=== PATIENT | female | born 1990 | race Caucasian/White ===

== ENCOUNTER 2023-01-31 10:57 | Observation (INO) | payer BC ==
[~2023-01-31] VITALS: Ht 167.6 cm; Wt 89.8 kg
== END 2023-01-31 12:20 | disposition home or self-care (01) ==
LOC: SPU 10:57
PROVIDERS: ADMIT Obstetrics & Gynecology; ATTEND Obstetrics & Gynecology
DX: O36.8130 Decreased fetal movements, third trimester, not applicable or unspecified (principal); Z3A.39 39 weeks gestation of pregnancy
CPT/HCPCS: 59025; 81002; G0378; G0379

== ENCOUNTER 2023-02-01 21:48 | Inpatient (IN) | payer BC ==
[~2023-02-01] VITALS: Ht 167.6 cm; Wt 89.8 kg
[2023-02-01] MEDS ORDERED: LR 1,000 ML IV ONE (22:30)
[2023-02-01] MEDS ORDERED: NALBUPHINE HCL 10 MG/ML AMP IVP PRN (22:30)
[2023-02-01] MEDS ORDERED: TERBUTALINE SULFATE 1 MG/ML VIAL SUBCUT PRN (22:30)
[2023-02-01] MEDS ORDERED: AMPICILLIN SODIUM 2 GM in NS 100 ML IV ONE (22:30)
[2023-02-01] MEDS ORDERED: OXYTOCIN/0.9 % SODIUM CHLORIDE 1,000 ML IV SCH (22:30)
[2023-02-01 23:00] LABS: BASOPHILS % (AUTO) 0.2 % (0.0-2.0); EOSINOPHILS # (AUTO) 0.1 K/uL (0.0-0.4); EOSINOPHILS % (AUTO) 0.7 % (0.0-4.0); HEMATOCRIT 37.1 % (36-48); HEMOGLOBIN 12.6 g/dL (12.0-16.0); LYMPHOCYTES # (AUTO) 1.7 K/uL (1.0-5.5); LYMPHOCYTES % (AUTO) 18.4 % (20.5-51.5); MEAN CORPUSCULAR HEMOGLOBIN 32 pg (27-31); MEAN CORPUSCULAR HGB CONC 34 % (32-36); MEAN CORPUSCULAR VOLUME 94 fL (79.0-98.0); MONOCYTES # (AUTO) 0.6 K/uL (0.0-1.0); MONOCYTES % (AUTO) 6.5 % (1.7-9.3); NEUTROPHILS # (AUTO) 6.8 K/uL (1.8-7.7); NEUTROPHILS % (AUTO) 74.2 % (40.0-70.0); PLATELET COUNT (AUTO) 228 K/uL (130-430); RED BLOOD CELL COUNT(AUTO) 3.94 MIL/uL (4.2-6.2); RED CELL DISTRIBUTION WIDTH 13.3 % (9.0-15.0); WHITE BLOOD COUNT (AUTO) 9.1 K/uL (4.8-10.8)
[2023-02-01] MEDS: LR 1,000 ML IV SCH (23:42)
[2023-02-02] MEDS ORDERED: ROPIVACAINE HCL/PF 0.2% 200 ML ONE ×2 (00:18→17:47)
[2023-02-02] MEDS ORDERED: fentaNYL CITRATE/PF 100 MCG/2 ML AMP ONE ×2 (00:18→17:47)
[2023-02-02] MEDS ORDERED: AMPICILLIN SODIUM 2 GM VIAL ONE (01:10)
[2023-02-02] MEDS ORDERED: FENT2mCg/mL-ROPIVA0.2%/NS EPID 200 ML EP SCH (01:45)
[2023-02-02] MEDS ORDERED: LR 500 ML IV ONE (01:45)
[2023-02-02] MEDS ORDERED: DIPHENHYDRAMINE INJ 50 MG/ML VIAL IVP PRN (02:15)
[2023-02-02 03:39] VITALS: BP_SYST 136
[2023-02-02] MEDS ORDERED: AMPICILLIN SODIUM 1 GM VIAL ONE ×2 (05:06→05:09)
[2023-02-02] MEDS: AMPICILLIN SODIUM 1 GM in NS 50 ML IV SCH ×2 (05:12→09:19)
[2023-02-02] MEDS: LR 1,000 ML IV SCH ×2 (11:40→18:24)
[2023-02-03] MEDS: LR 1,000 ML IV SCH (00:48)
[2023-02-03] MEDS ORDERED: fentaNYL CITRATE/PF 100 MCG/2 ML AMP ONE (01:28)
[2023-02-03] MEDS ORDERED: ROPIVACAINE HCL/PF 0.2% 200 ML ONE (01:29)
[2023-02-03] MEDS ORDERED: AMPICILLIN SODIUM 2 GM in NS 100 ML IV ONE (02:30)
[2023-02-03] MEDS ORDERED: AMPICILLIN SODIUM 2 GM VIAL ONE (02:35)
[2023-02-03] MEDS ORDERED: CEFAZOLIN 1 GM IVPB PREMIX 50 ML IV ONE (03:15)
[2023-02-03] MEDS ORDERED: CEFAZOLIN 2 GM IVPB PREMIX 50 ML IV ONE (03:15)
[2023-02-03 03:49] LABS: BILIRUBIN,URINE 1+ (NEGATIVE); BLOOD, URINE 3+ (NEGATIVE); CLARITY/URINE SL CLOUDY (CLEAR); COLOR,URINE YELLOW (YELLOW); GLUCOSE,URINE NEGATIVE (NEGATIVE); KETONES,URINE 3+ (NEGATIVE); LEUKOCYTE ESTERASE ,URINE NEGATIVE (NEGATIVE); NITRITE, URINE NEGATIVE (NEGATIVE); PROTEIN URINE 2+ (NEGATIVE); UROBILINOGEN,URINE 0.2 (0.2-1.0)
[2023-02-03 03:52] LABS: BACTERIA,URINE None Seen /HPF (None Seen); RBC,URINE 20-50 /HPF (0-3); WBC,URINE 0-3 /HPF (0-3)
[2023-02-03] MEDS ORDERED: METHYLERGONOVINE MALEATE 0.2 MG/ML AMP ONE (06:04)
[2023-02-03] MEDS ORDERED: LANOLIN 7 GM OINT. TP PRN (06:15)
[2023-02-03] MEDS ORDERED: KETOROLAC TROMETHAMINE 30 MG VIAL IVP PRN ×2 (06:15→07:30)
[2023-02-03] MEDS ORDERED: LR 1,000 ML IV SCH (06:15)
[2023-02-03] MEDS ORDERED: BISACODYL 10 MG/SUPPOSITORY RC PRN (06:15)
[2023-02-03] MEDS ORDERED: ANUSOL 1 EA SUPP.RECT (PREPARATION H) RC PRN (06:15)
[2023-02-03] MEDS ORDERED: OXYTOCIN/0.9 % SODIUM CHLORIDE 1,000 ML IV ONE (06:15)
[2023-02-03] MEDS ORDERED: AMPICILLIN SODIUM 1 GM in NS 50 ML IV SCH (06:30)
[2023-02-03 06:57] VITALS: BP_SYST 126
[2023-02-03] MEDS ORDERED: ONDANSETRON HCL 4 MG/2 ML VIAL IVP PRN ×2 (07:00→07:30)
[2023-02-03] MEDS ORDERED: KETOROLAC TROMETHAMINE 60 MG/2 ML VIAL IM PRN (07:00)
[2023-02-03] MEDS ORDERED: HYDROmorphone 1 MG/ML INJ. CARTRIDGE ONE (07:20)
[2023-02-03] MEDS ORDERED: HYDROmorphone 1 MG/ML INJ. CARTRIDGE IVP PRN ×2 (07:30)
[2023-02-03] MEDS ORDERED: NALOXONE HCL 0.4 MG/ML AMP (NARCAN) IVP PRN ×2 (07:30)
[2023-02-03] MEDS: SENNOSIDES/DOCUSATE SODIUM 1 TAB TABLET(SENOKOT-S) PO SCH (20:43)
[2023-02-03] MEDS: DOCUSATE SODIUM 100 MG CAPSULE PO SCH (20:43)
[2023-02-03] MEDS: SIMETHICONE 80 MG TAB.CHEW PO PRN (20:44)
[2023-02-03] MEDS ORDERED: TEMAZEPAM 15 MG CAPSULE PO PRN (21:00)
[2023-02-04] MEDS: SIMETHICONE 80 MG TAB.CHEW PO PRN ×4 (00:53→21:10)
[2023-02-04] MEDS: OXYCODONE/ACETAMINOPHEN 5-325 TABLET PO PRN ×4 (00:53→21:11)
[2023-02-04 06:06] LABS: BASOPHILS % (AUTO) 0.4 % (0.0-2.0); EOSINOPHILS % (AUTO) 0.5 % (0.0-4.0); HEMATOCRIT 32.2 % (36-48); HEMOGLOBIN 10.9 g/dL (12.0-16.0); LYMPHOCYTES # (AUTO) 1.6 K/uL (1.0-5.5); LYMPHOCYTES % (AUTO) 16.3 % (20.5-51.5); MEAN CORPUSCULAR HEMOGLOBIN 32 pg (27-31); MEAN CORPUSCULAR HGB CONC 34 % (32-36); MEAN CORPUSCULAR VOLUME 95 fL (79.0-98.0); MONOCYTES # (AUTO) 0.7 K/uL (0.0-1.0); MONOCYTES % (AUTO) 7.4 % (1.7-9.3); NEUTROPHILS # (AUTO) 7.6 K/uL (1.8-7.7); NEUTROPHILS % (AUTO) 75.4 % (40.0-70.0); PLATELET COUNT (AUTO) 193 K/uL (130-430); RED BLOOD CELL COUNT(AUTO) 3.41 MIL/uL (4.2-6.2); RED CELL DISTRIBUTION WIDTH 13.5 % (9.0-15.0)
[2023-02-04] MEDS: IBUPROFEN 800 MG TABLET PO PRN ×4 (06:27→23:58)
[2023-02-04] MEDS: DOCUSATE SODIUM 100 MG CAPSULE PO SCH (15:19)
[2023-02-04] MEDS: SENNOSIDES/DOCUSATE SODIUM 1 TAB TABLET(SENOKOT-S) PO SCH (21:10)
[2023-02-05] MEDS: SIMETHICONE 80 MG TAB.CHEW PO PRN ×2 (03:23→23:44)
[2023-02-05] MEDS: OXYCODONE/ACETAMINOPHEN 5-325 TABLET PO PRN ×4 (03:23→23:45)
[2023-02-05] MEDS: IBUPROFEN 800 MG TABLET PO PRN ×4 (05:53→23:43)
[2023-02-05] MEDS: DOCUSATE SODIUM 100 MG CAPSULE PO SCH (09:34)
[2023-02-05] MEDS: SENNOSIDES/DOCUSATE SODIUM 1 TAB TABLET(SENOKOT-S) PO SCH (21:09)
[2023-02-06] MEDS: OXYCODONE/ACETAMINOPHEN 5-325 TABLET PO PRN ×8 (03:03→23:11)
[2023-02-06] MEDS: IBUPROFEN 800 MG TABLET PO PRN ×4 (06:15→23:05)
[2023-02-06] MEDS: SIMETHICONE 80 MG TAB.CHEW PO PRN ×4 (06:16→20:52)
[2023-02-06] MEDS: DOCUSATE SODIUM 100 MG CAPSULE PO SCH ×2 (09:10→20:53)
[2023-02-07 21:06] LABS: FTA-Ab (T PALLIDUM) Non Reactive (Non Reactive)
== END 2023-02-06 23:40 | disposition home or self-care (01) | DRG 788 ==
LOC: OBSVTOIN 21:48 → SPU 21:48
PROVIDERS: ADMIT Obstetrics & Gynecology; ATTEND Obstetrics & Gynecology
PROC: 10D00Z1 Extraction of Products of Conception, Low, Open Approach (ICD-10-PCS; principal; 2023-02-03 06:00)
DX: O48.0 Post-term pregnancy (principal); O62.0 Primary inadequate contractions; Z20.822 Contact with and (suspected) exposure to COVID-19; O77.0 Labor and delivery complicated by meconium in amniotic fluid; Z37.0 Single live birth; Z3A.40 40 weeks gestation of pregnancy
CPT/HCPCS: 36415; 81000; 81002; 85025; 86592; 86780; 86886; 86900; 86901; 94760; J0290; J0690; J1170; J1200; J1885; J2210; J2590; J3010

== ENCOUNTER 2023-02-12 10:12 | Emergency (ER) | payer BC ==
[~2023-02-12] VITALS: Ht 167.6 cm; Wt 83.0 kg
--- NOTE | 2023-02-12 10:35 | NUR ---
PT BIB AWAKE AND ALERT AOX4, NO SOB OR DISTRESS. PT C/O PAIN TO ABDOMIN 05/19. PT STATED SHE HAS A ON 02/03/23. PT STATED PAIN STARTED X5 DAYS AGO. PT DENIES HX AND OTHER SX.
--- NOTE | 2023-02-12 10:36 | NUR ---
MD DR ZAPATA AT BEDSIDE
[2023-02-12 10:37] VITALS: BP_SYST 127
--- NOTE | 2023-02-12 10:40 | NUR ---
PT TRIAGED AND PLACED IN BED 8, REPORT GIVEN TO YUVAL GALVIN. PT BIB FOR C/O OF FEVER AND CHILLS X5 DAYS. PT HAD ON FEBRUARY 03 AND HAS C/O THE SITE LOOKING RED, SWOLLEN WITH DRAINAGE. PT IS TAKING PERCOCET AND IBUPROPHEN, LAST DOSE OF IBUPROPHEN TAKEN AT ABOUT 5AM.
[2023-02-12 10:58] LABS: BASOPHILS % (AUTO) 0.2 % (0.0-2.0); EOSINOPHILS # (AUTO) 0.1 K/uL (0.0-0.4); EOSINOPHILS % (AUTO) 1.1 % (0.0-4.0); HEMATOCRIT 36.9 % (36-48); HEMOGLOBIN 12.2 g/dL (12.0-16.0); LYMPHOCYTES # (AUTO) 1.4 K/uL (1.0-5.5); LYMPHOCYTES % (AUTO) 12.4 % (20.5-51.5); MEAN CORPUSCULAR HEMOGLOBIN 31 pg (27-31); MEAN CORPUSCULAR HGB CONC 33 % (32-36); MEAN CORPUSCULAR VOLUME 95 fL (79.0-98.0); MONOCYTES # (AUTO) 0.5 K/uL (0.0-1.0); MONOCYTES % (AUTO) 4.6 % (1.7-9.3); NEUTROPHILS # (AUTO) 8.9 K/uL (1.8-7.7); NEUTROPHILS % (AUTO) 81.7 % (40.0-70.0); PLATELET COUNT (AUTO) 440 K/uL (130-430); RED CELL DISTRIBUTION WIDTH 13.3 % (9.0-15.0)
[2023-02-12] MEDS ORDERED: IBUPROFEN 800 MG TABLET PO ONE (11:00)
[2023-02-12] MEDS ORDERED: HYDROcodone/ACETAMIN 10-325 MG TAB PO ONE (11:00)
[2023-02-12 11:15] LABS: CALCIUM 9.1 mg/dL (8.4-11.0); CREATININE 0.7 mg/dL (0.55-1.30)
[2023-02-12 11:28] LABS: ALBUMIN 2.4 g/dL (3.4-4.8); C-REACTIVE PROTEIN QUANT 34.9 mg/dL (0-0.5); TOTAL BILIRUBIN 0.4 mg/dL (0.0-1.0)
[2023-02-12] MEDS ORDERED: NACL 0.9% 1,000 ML IV ONE (12:15)
[2023-02-12] MEDS ORDERED: ACET-2634 PO (12:17)
[2023-02-12] MEDS ORDERED: CEPH250C PO (12:17)
[2023-02-12 12:24] LABS: BILIRUBIN,URINE NEGATIVE (NEGATIVE); BLOOD, URINE 3+ (NEGATIVE); CLARITY/URINE CLEAR (CLEAR); COLOR,URINE YELLOW (YELLOW); GLUCOSE,URINE NEGATIVE (NEGATIVE); KETONES,URINE NEGATIVE (NEGATIVE); LEUKOCYTE ESTERASE ,URINE 2+ (NEGATIVE); NITRITE, URINE NEGATIVE (NEGATIVE); PH,URINE 6.5 (5.0-8.0); PROTEIN URINE NEGATIVE (NEGATIVE); UROBILINOGEN,URINE 0.2 (0.2-1.0)
[2023-02-12 12:30] VITALS: BP_SYST 127
--- NOTE | 2023-02-12 12:31 | NUR ---
Patient given written and verbal discharge instructions and verbalizes understanding. ER MD DR ZAPATA discussed with patient the results and treatment provided. Patient in stable condition. ID arm band removed. Rx of given. Patient educated on pain management and to follow up with PMD. Pain Scale 2/10. Opportunity for questions provided and answered. Medication side effect fact sheet provided.
[2023-02-12 12:55] LABS: BACTERIA,URINE RARE /HPF (None Seen)
== END 2023-02-12 10:35 | disposition home or self-care (01) ==
LOC: SED 10:12
DX: T81.30XA Disruption of wound, unspecified, initial encounter (principal); R50.9 Fever, unspecified; R10.30 Lower abdominal pain, unspecified; Z79.899 Other long term (current) drug therapy
CPT/HCPCS: 36415; 71045; 76376; 80053; 81000; 83605; 85025; 86140; 87086; 99284